=== PATIENT | male | born 1970 | race Caucasian/White ===

== ENCOUNTER 2024-02-03 08:35 | Day surgery (SDC) | payer BC, SELFPAY ==
[2024-02-02 07:22] VITALS: BMI 44.2
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
[2024-02-03 09:26] LABS: Glucose - Point of Care 141 mg/dl (70-99)
== END 2024-02-03 11:15 | disposition home or self-care (01) ==
LOC: CATH 08:35
PROVIDERS: ATTENDING PHYSICIAN Internal Medicine Cardiovascular Disease; FAMILY PHYSICIAN Student in an Organized Health Care Education/Training Program; OTHER PHYSICIAN Student in an Organized Health Care Education/Training Program
DX: I08.1 Rheumatic disorders of both mitral and tricuspid valves (principal); I10 Essential (primary) hypertension; E11.9 Type 2 diabetes mellitus without complications; K44.9 Diaphragmatic hernia without obstruction or gangrene; K58.0 Irritable bowel syndrome with diarrhea; K57.90 Diverticulosis of intestine, part unspecified, without perforation or abscess without bleeding; M10.9 Gout, unspecified; F41.9 Anxiety disorder, unspecified; F32.A Depression, unspecified; M19.90 Unspecified osteoarthritis, unspecified site; Z87.891 Personal history of nicotine dependence; E66.01 Morbid (severe) obesity due to excess calories; Z68.41 Body mass index [BMI] 40.0-44.9, adult; F10.11 Alcohol abuse, in remission; G47.33 Obstructive sleep apnea (adult) (pediatric); G43.909 Migraine, unspecified, not intractable, without status migrainosus; I48.19 Other persistent atrial fibrillation; Z79.01 Long term (current) use of anticoagulants; Z79.84 Long term (current) use of oral hypoglycemic drugs; Z79.85 Long-term (current) use of injectable non-insulin antidiabetic drugs; Z79.899 Other long term (current) drug therapy; Z90.49 Acquired absence of other specified parts of digestive tract
CPT/HCPCS: 93312; 93320; 93325; 82962; 93005

== ENCOUNTER 2024-09-10 08:56 | Emergency (ER) | payer BC, SELFPAY ==
[2024-09-10] VITALS (7 sets, daily range): BP systolic 107–127; BP diastolic 74–83; PULSE 78; O2SAT 95; BMI 47.1
--- NOTE | 2024-09-10 10:22 | ED.CVA ---
History of Present Illness
General
Chief Complaint: Weakness
Source: patient
Exam Limitations: none
Time Seen by Provider: 09/10/24 09:19
Nursing documentation reviewed up to this point in time: agreed with
Onset of Stroke Symptoms
Onset of symptoms known: Yes
Date of onset of symptoms: 09/09/24
History of Present Illness
History of Present Illness:
Mr. Landry Bello is a 54-year-old male with a PMH notable for A-fib (on Eliquis and metoprolol) and concussion, who is presenting with left wrist drop of upon waking yesterday.
He woke up yesterday with a limp wrist and hand. He was unable to make a fist, extend or flex his wrist. Over the course of the day he regained the strength to flex his wrist and make a fist, but he still cannot extend his wrist. As a director software development,
it was difficult for him to type at the beginning of his day yesterday but he now has regained about 30% of his typing ability.
He thinks that he pinched a nerve with his sleeping position. He is endorses pain at his left anterior shoulder near the acromioclavicular joint.
He denies paresthesia, numbness, and pain in his left arm.
He denies vision changes, lightheadedness, and loss of consciousness. He came to the ED at the suggestion of his , who is concerned for a stroke.
Past History
Past History
ED Past Medical History: Arrthythmia (afib), HTN and Other (Open fracture left index)
ED Past Surgical History: None
Social History
Tobacco: Non-smoker
Alcohol: Daily
Drug: None
Personal:
Living: with family
Employment: Employed
Review of Systems
Review of Systems
All Other Systems: ROS reviewed and negative except as documented in HPI and ROS
Phy Exam
Physical Exam
Physical Exam:
MSK:
Left upper extremity:
0 out of 5 strength to wrist extension, 5 out of 5 strength to wrist flexion.
When making a left fist, the patient's fingers twitch and the patient is not able to hold the fist firmly.
The patient pointed to an area of 2 out of 10 pain at the left anterior shoulder acromioclavicular joint.
Upper extremities:
5 out of 5 strength to elbow flexion and extension.
5 out of 5 strength shoulder abduction and adduction.
Triceps and brachial radialis reflexes not able to be evoked bilaterally
No pedal edema
Neuro:
EOMI, facial expressions intact, [id number] intact
Heart: Irregular rhythm
Lungs: Clear to station bilaterally
Abdomen: Normal bowel sounds, distended abdomen, no tenderness to palpation
Course
Orders/Labs/Results
Orders:
Orders
09/10/24 09:19
ECG [Electrocardiogram (*1)] Urgent
Reason for Study: Chest Pain
EKG- Treatment ONCE
09/10/24 10:06
CT Head W/o Iv Contrast Urgent
Comment:
Reason For Exam: woke up with L wrist & hand weakness on Eliquis
09/10/24 10:30
Lyme Progressive Urgent
09/10/24 10:41
CT Cervical Spine W/o Iv Contr Urgent
Comment:
Reason For Exam: woke up with L wrist/hand weakness
09/10/24 10:45
Occupational Therapy Consult [Ot Eval And Treat] Urgent
09/10/24 13:27
Dorsal/Volar Left-Treatment ONCE
Vital Signs
Initial and Last Documented VS:
Initial Vital Signs
Temp Pulse Resp BP Pulse Ox
98.8 F 80 16 127/83 95
09/10/24 09:02 09/10/24 09:02 09/10/24 09:02 09/10/24 09:02 09/10/24 09:02
Last Documented Vital Signs
Temp Pulse Resp BP Pulse Ox
98.8 F 84 25 108/76 95
09/10/24 09:02 09/10/24 12:30 09/10/24 12:30 09/10/24 12:00 09/10/24 12:30
MDM/Problems Addressed
Differential Diagnosis Includes:
Wrist drop
Cervical nerve root compression
Hemorrhagic stroke on Eliquis
Lyme disease
MDM/Problems Addressed:
Landry Bello is a 54-year-old male with a PMH notable for A-fib, concussion, who is presenting with wrist drop upon awakening for 1 day.
Occupational health consult for evaluation of wrist weakness (remaining extension paralysis), any exercises, and any treatment (such as a splint): velcro wrist
EKG: NSR
CT cervical spine: mild degenerative changes
CT head noncontrast: no acute intracranial pathology
Lyme titers: pending
Chronic conditions affecting care: Arrhythmia and Previous abdomnial surgery
*Radiology
Radiology exam reviewed: radiology read reviewed
*Pulse Oximetry
SaO2: 95
Oxygen Mode of Delivery: Room air
Patient hypoxic: no
*EKG
Interpreted by ED Provider?: Yes
Interpretation: abnormal
Comparison EKG: no changes
Heart Rate: 83
Rate: normal
Rhythm: a-fib
[place]: normal axis
*[employer] Interpretation
Rate: normal
Interpretation: abnormal
Rhythm: a-fib
*Critical Care Note
Total Time (30-74mins, 75-104mins- exclusive of procedures): Not Applicable
ED Attending Note
-
Portions of this chart may have been created with voice recognition software.� Occasional wrong word or��sound alike� substitutions may have occurred due to the inherent limitations of voice recognition software.
Discharge Plan
Departure
Patient Disposition: Home (Routine Discharge)
Date of Disposition: 09/10/24
Time of Disposition: 13:40
Patient with high blood pressure during this ER visit?: No
Condition: Fair
Discharge Problem:
Left wrist drop
Instructions: Radial Nerve Entrapment
Prescriptions:
No Action
Eliquis 5 MG tablet
5 mg PO BID
metoprolol tartrate 25 MG tablet
25 mg PO BID
lisinopril 20 MG tablet
20 mg PO DAILY
fluoxetine 20 MG capsule
20 mg PO DAILY
dofetilide 500 MCG capsule
500 mcg PO Q12H
amlodipine [Norvasc] 10 MG tablet
10 mg PO DAILY Qty: 30 0RF
alprazolam 2 mg Tablet
2 mg PO DAILYPRN PRN (Reason: anxiety)
furosemide 20 mg Tablet
20 mg PO DAILY
metformin 500 mg Tablet
500 mg PO DAILY
Ozempic 2 mg/dose (8 mg/3 mL) Pen Injector
2 mg SC QWEEK
cholecalciferol (vitamin D3) [Vitamin D3] 50 mcg (2,000 unit) Tablet
50 mcg PO DAILY
Multivitamin Gummies
1 gum PO DAILY
Referrals:
Fareed Chavez MD [Family Provider, Family Practice]
Activity Restrictions/Additional Instructions:
Dear Landry, you came to the ED for left wrist/hand weakness. The diagnostic imaging did not reveal a cause for your wrist weakness. The Lyme titer has not resulted. We will call you if it is positive, but feel free to call the ED in 3-4 days
to check.
Please return to the ED if you have palselessness, pallor, severe pain in your left arm. It was a pleasure to be a part of your care team.
Interventions
Interventions:
*Risk Screen - Suicide Last Done: 09/10/24 10:37
*General Assessment Last Done: 09/10/24 09:02
*Neglect/Abuse Screening Last Done: 09/10/24 10:37
*ED- Fall Risk Assessment Last Done: 09/10/24 10:37
*ED COVID-19 Vaccine History Last Done: 09/10/24 09:02
ED- Cardiac Assessment Last Done: 09/10/24 10:47
ED- Neurological Assessment Last Done: 09/10/24 10:47
ED- Pulmonary Assessment Last Done: 09/10/24 10:47
Discharge Date and Time
Print Language: GRENADIAN
== END 2024-09-10 14:20 | disposition home or self-care (01) ==
LOC: EMR 08:56
PROVIDERS: EMERGENCY PHYSICIAN Emergency Medicine; FAMILY PHYSICIAN Student in an Organized Health Care Education/Training Program
DX: M21.332 Wrist drop, left wrist (principal); M25.519 Pain in unspecified shoulder; I48.91 Unspecified atrial fibrillation; I10 Essential (primary) hypertension; Z79.01 Long term (current) use of anticoagulants; Z79.899 Other long term (current) drug therapy
CPT/HCPCS: 99284; 70450; 72125; 86618; 93005